=== PATIENT | female | born 2000 | race Asian ===

== ENCOUNTER 2022-07-30 03:33 | Emergency (ER) | payer BC, SELFPAY ==
[2022-07-30 03:39] VITALS: BP 139/84; PULSE 110; RESP 24; TEMP 36.7; O2SAT 95; BMI 25.0
--- NOTE | 2022-07-30 03:44 | ED_ITS ---
HPI - URI/Sore Throat General Time Seen by Provider: 03:44 Date Seen: 07/30/22 Chief Complaint: Cough Stated Complaint: cough,trouble breathing Time Seen by Provider: 07/30/22 03:33 Source: patient, RN notes reviewed and old records reviewed Mode of arrival: ambulatory Limitations: no limitations History of Present Illness HPI Narrative: Eduardo is a 22-year-old patient states that she has had cold-like and cough symptoms over the last 2 days but it seems to have accelerated in the past 2 hours. Patient states that she has had multiple negative COVID test at home. They think there may have been a illness exposure in a sister of her roommate. She has tried T and then some DayQuil at home but is really not helping. She is otherwise healthy with no history of asthma or tobacco use. No fevers to report. No vomiting or diarrhea. Related Data Previous Rx's Medication Instructions Recorded albuterol sulfate 90 mcg/actuation 1 inh inhalation QID PRN shortness 07/30/22 aerosol inhaler of breath or wheezing #8.5 grams benzonatate 100 mg capsule 100 mg PO BID-TID PRN cough #20 07/30/22 caps Allergies Allergy/AdvReac Type Severity Reaction Status Date / Time No Known Drug Allergies Allergy Verified 07/30/22 03:42 Review of Systems Status of ROS: Reports: 10 or more systems reviewed and unremarkable except as noted in History and below Const: Denies: fever or chills ENMT: Denies: throat pain, neck pain, throat swelling or hoarseness Cardio: Reports: lightheadedness; Denies: chest pain Resp: Reports: cough GI: Denies: abdominal pain, nausea or vomiting Musculo: Denies: neck pain Allergy/Immuno: Denies: throat swelling [facility] Medical History (Updated 07/30/22 @ 05:09 by Lexi Mcnulty MD) No significant past medical history Surgical History (Updated 07/30/22 @ 04:02 by Rex Fischer RN) No significant past surgical history Social History Smoking Status: Never smoker Do you use any of these nicotine containing products: None Second hand tobacco smoke exposure: No How often do you have a drink containing alcohol: never How often do you have six or more drinks on one occasion: Never AUDIT-C Alcohol total score: 0 Non-prescribed substance use: denies use Exam Narrative: Exam Narrative: Patient is alert and oriented. She is talking quite a bit with short shallow and frequent breaths. Very dramatic in presentation. Eyes are clear as is oral cavity. No erythema or exudate in the posterior oropharynx. TMs bilaterally without erythema. Neck is supple. Heart with a tachycardic rate. Lungs are clear in all lung [place]. Cough is shallow and does not appear to have congestion. Moving all extremities Roommate accompanies her. Const: Vital Signs, click to edit/add: Vital Signs - 24 hr 07/30/22 03:39 Temperature 98.0 F Pulse Rate [Right Pulse Oximeter] 110 H Respiratory Rate 24 Blood Pressure [Ri ght Upper Arm] 139/84 Pulse Oximetry 95 Oxygen Delivery Me thod Room Air Documenting provider has reviewed patient's vital signs: yes Course Course Hospital Course: Differential diagnosis does include but is not limited to COVID, he URI, bronchospasm, allergic reaction, anxiety, pneumonia, pneumothorax. Will obtain chest x-ray as well as DuoNeb. Will swab for COVID/influenza/RSV. Reevaluation(s) Reevaluation #1: Patient noted to have episodes of great relief of coughing. Coughing not productive and certainly not very deep. Vital Signs Vital signs: Initial Vital Signs Temperature 98.0 F 07/30/22 03:39 Temperature Source Temporal Artery Scan 07/30/22 03:39 Pulse Rate 110 H 07/30/22 03:39 Respiratory Rate 24 07/30/22 03:39 Blood Pressure 139/84 07/30/22 03:39 Blood Pressure Mean 102 07/30/22 03:39 Blood Pressure Position Sitting 07/30/22 03:39 Pulse Oximetry 95 07/30/22 03:39 Oxygen Delivery Method 07/30/22 03:39 Vital Signs Temperature 98.0 F 07/30/22 03:39 Pulse Rate 110 H 07/30/22 03:39 Respiratory Rate 24 07/30/22 03:39 Blood Pressure 139/84 07/30/22 03:39 Pulse Oximetry 95 07/30/22 03:39 Oxygen Delivery Method 07/30/22 03:39 Temperature 98.0 F 07/30/22 03:39 Pulse Rate 110 H 07/30/22 03:39 Respiratory Rate 24 07/30/22 03:39 Blood Pressure 139/84 07/30/22 03:39 Pulse Oximetry 95 07/30/22 03:39 Oxygen Delivery Method 07/30/22 03:39 MDM - URI/Sore Throat MDM Narrative Medical decision making narrative: 1. URI-patient currently with a cough and has tested negative for COVID/influenza/RSV. Nontoxic in appearance at this time. Chest x-ray reassuring with no evidence of pneumonia, pneumothorax. Patient initially given DuoNeb and then Tessalon Perles which seemed to have helped. 2. Disposition-home at this time. Supportive cares to include pushing fluids. Tessalon Perles on 100-200 mg p.o. t.i.d. p.r.n. 20. Sent to [facility]. Albuterol inhaler 2 puffs Q 4-6 hours p.r.n. 1. Sed to [facility]. Recommend seeking medical attention for worsening symptoms. Lab Data Attestation: I reviewed the patient's lab results. Labs: Lab Results 07/30/22 Range/Units 03:50 SARS-CoV-2 (PCR) Negative SARS-CoV-2 (Negative) Influenza Type A (PCR) Negative PCR FLU A (Negative) Influenza Type B (PCR) Negative PCR FLU B (Negative) RSV (PCR) Negative PCR RSV (Negative) Imaging Data Chest x-ray: Attestation: I have reviewed the pertinent imaging results. My impression: No infiltrates or evidence of pneumothorax Radiologist's impression: HEART AND MEDIASTINUM: The heart size is normal. The mediastinal contour appears normal for patient age. LUNGS AND PLEURAL SPACES: The lungs appear normal.The pleural spaces are unremarkable. OSSEOUS STRUCTURES: Age-appropriate appearance. No acute focal finding. IMPRESSION: No evidence of active pulmonary disease. Discharge Plan Discharge Clinical Impression: URI (upper respiratory infection), Cough Patient Disposition: Home, Self-Care Condition: Improved Additional Instructions: Tessalon Perles may be used for cough during the day. This prescription sent to [facility]. Albuterol inhaler may be used to help open up airways. This prescription sent to [facility] Push fluids. Seek medical attention or return for worsening symptoms. Prescriptions: New benzonatate 100 mg capsule 100 mg PO BID-TID PRN (Reason: cough) Qty: 20 0RF albuterol sulfate 90 mcg/actuation HFA aerosol inhaler 1 inh inhalation QID PRN (Reason: shortness of breath or wheezing) Qty: 8.5 0RF Follow Up/Referrals: Marianne Kim MD [Primary Care Provider] - Stand Alone Forms: [employer] Info Instructions
--- NOTE | 2022-07-30 03:53 | CRLHL7_ITS ---
For Patients: As a result of the Cures Act, medical imaging exams and procedure reports are released immediately into your electronic medical record. You may view this report before your referring provider. If you have questions, please contact your health care provider. INDICATION: Cough COMPARISON: None TECHNIQUE: Single-view study FINDINGS: TUBES AND LINES: None. HEART AND MEDIASTINUM: The heart size is normal. The mediastinal contour appears normal for patient age. LUNGS AND PLEURAL SPACES: The lungs appear normal.The pleural spaces are unremarkable. OSSEOUS STRUCTURES: Age-appropriate appearance. No acute focal finding. IMPRESSION: No evidence of active pulmonary disease. Dictated by Mohan Sharma MD @ 07/30/2022 4:30:22 AM (Electronically Signed)
[2022-07-30] MEDS: IPRAT-ALBUT 0.5-2.5 MG/3 ML NEB 1 NEB IH (03:58)
[2022-07-30 04:41] LABS: PCR FLU A Negative PCR FLU A (Negative); PCR FLU B Negative PCR FLU B (Negative); PCR RSV Negative PCR RSV (Negative)
[2022-07-30] MEDS: BENZONATATE 100 MG CAPSULE 200 MG PO (04:46)
[2022-07-30 04:49] LABS: SARS PCR* Negative SARS-CoV-2 (Negative)
[2022-07-30 05:18] VITALS: BP 125/78; PULSE 105; RESP 24; TEMP 36.7; O2SAT 97
[2022-07-30 05:21] VITALS: BP 125/78; PULSE 105; RESP 24; TEMP 36.7
== END 2022-07-30 05:22 | disposition home or self-care (01) ==
PROVIDERS: Emergency Provider Family Medicine; PCP Family Medicine
DX: Z20.822 Contact with and (suspected) exposure to COVID-19 (principal); J06.9 Acute upper respiratory infection, unspecified
CPT/HCPCS: 71045; 87502; 87634; 87635; 94640; 99283; 99284; A9270